=== PATIENT | male | born 1990 | race Caucasian/White ===

== ENCOUNTER 2017-06-18 12:16 | Day surgery (SDC) | payer MEDICAID ==
[2017-06-18] MEDS ORDERED: NS 1,000 ML IV ONE (13:00)
[2017-06-18] MEDS ORDERED: LIDOCAINE 1% 2 ML INJ ID PRN (13:02)
[2017-06-18] MEDS ORDERED: LR 1,000 ML IV ONE (13:02)
[2017-06-18] MEDS ORDERED: NALOXONE HCL 0.4 MG/ML INJ IVP PRN (13:55)
--- NOTE | 2017-06-18 13:55 | PDANEPAE ---
ANE History of Present Illness crohn's disease ANE Past Medical History - Cardiovascular History Hx Hypertension: No Hx Arrhythmias: No Hx Chest Pain: No Hx Coronary Artery / Peripheral Vascular Disease: No Hx CHF / Valvular Disease: No Hx Palpitations: No - Pulmonary History Hx COPD: No Hx Asthma/Reactive Airway Disease: No Hx Recent Upper Respiratory Infection: No Hx Oxygen in Use at Home: No Hx Sleep Apnea: No Sleep Apnea Screening Result - Last Documented: Negative Pulmonary History Comment: childhood asthma - Neurologic History Hx Cerebrovascular Accident: No Hx Seizures: No Hx Dementia: No Neurologic History Comment: occas headaches - Endocrine History Hx Diabetes: No - Renal History Hx Renal Disorders: No - Liver History Hx Hepatic Disorders: No - Neurological & Psychiatric Hx Hx Neurological and Psychiatric Disorders: No - Cancer History Hx Cancer: No - Congenital Disorder History Hx Congenital Disorders: No - GI History Hx Gastrointestinal Disorders: Yes Gastrointestinal History Comment: cramps,nausea & vomiting - Other Health History Other Health History: occas mild rash - Chronic Pain History Chronic Pain: Yes (abd pain) - Surgical History Prior Surgeries: colonoscopy ANE Review of Systems Review of Systems: - Exercise capacity METS (RN): 4 METS ANE Patient History - Allergies Allergies/Adverse Reactions: No Known Allergies Allergy (Unverified 06/07/17 14:17) - Home Medications Home Medications: Budesonide 06/07/17 [Last Taken 06/18/17] Tylenol 06/07/17 [Last Taken 06/18/17] Zofran 06/07/17 [Last Taken 06/18/17] Delzicol 06/18/17 [Last Taken 06/18/17] - NPO status NPO Since - Liquids (Date): 06/18/17 NPO Since - Liquids (Time): 04:00 NPO Since - Solids (Date): 06/16/17 NPO Since - Solids (Time): 18:00 - Smoking Hx Smoking Status: Light smoker - Family Anes Hx Family Hx Anesthesia Complications: neg ANE Labs/Vital Signs - Vital Signs Blood Pressure: 126/92 Heart Rate: 91 Respiratory Rate: 18 O2 Sat (%): 97 Height: 175.26 cm Weight: 49.895 kg ANE Physical Exam - Airway Neck exam: FROM Mallampati Score: Class 1 Mouth exam: normal dental/mouth exam - Pulmonary Pulmonary: no respiratory distress - Cardiovascular Cardiovascular: regular rate and rhythym - ASA Status ASA Status: II ANE Anesthesia Plan Total IV Anesthesia: Yes
--- NOTE | 2017-06-18 13:57 | PDGENHP ---
History & Physical Chief Complaint: nausea, vomiting, hx of Crohn's disease Relevant Physical Exam: GEN: NAD. Cardiac: RRR. Lungs: CTA B. Abd: Soft, nt, nd
--- NOTE | 2017-06-18 14:26 | GIREPORT ---
Former[facility] Surgical Services - Endoscopy Department Patient Name: Danilo Daniel Procedure Date: 06/18/2017 1:48 PM Patient Type: Outpatient Attending / ER Physician: Connor Petty MD Procedure: Upper GI endoscopy Indications: Nausea with vomiting Providers: Connor Petty MD Medicines: Monitored Anesthesia Care Complications: No immediate complications. Description of Procedure: After obtaining informed consent, the endoscope was passed under direct vision. Throughout the procedure, the patient's blood pressure, pulse, and oxygen saturations were monitored continuous ly. The Endoscope was introduced through the mouth, and advanced to the second part of duodenum. The upper GI endoscopy was accomplished without difficulty. The patient tolerated the procedure well . Findings: The examined esophagus was normal. The Z-line was regular and was found 40 cm from the incisors. Localized mild inflammation characterized by erythema was found in the gastric antrum. Biopsies were taken with a cold forceps for histology. Verification of patient identification for the specimen was done by the physician and nurse using the patient's name and date. Estimated blood loss wa s minimal. The examined duodenum was normal. Biopsies were taken with a cold forceps for histology. Verific ation of patient identification for the specimen was done by the physician and nurse using the patient 's name and date. Estimated blood loss was minimal. Estimated Blood Loss: Estimated blood loss: none. Post Op Diagnosis: - Normal esophagus. - Z-line regular, 40 cm from the incisors. - Gastritis. Biopsied. - Normal examined duodenum. Biopsied. Recommendation: - Discharge patient to home (with escort). - Resume previous diet. - Continue present medications. - Follow up in GI clinic as previously scheduled. - Await pathology results. Results are available within 10 days. - Thank you for allowing me to participate in the care of your patient. Attending Participation: I personally performed the entire procedure. Connor Petty MD Cononr Petty MD 06/18/2017 2:25:46 PM Number of Addenda: 0 Note Initiated On: 06/18/2017 1:48 PM [email or web address]
--- NOTE | 2017-06-18 14:31 | GIREPORT ---
[facility] Surgical Services - Endoscopy Department Patient Name: Danilo Daniel Procedure Date: 06/18/2017 2:06 PM Patient Type: Outpatient Attending / ER Physician: Connor Petty MD Procedure: Colonoscopy Indications: Chronic diarrhea, Suspected Crohn's disease of the colon Providers: Connor Petty MD Medicines: Monitored Anesthesia Care Complications: No immediate complications. Description of Procedure: After obtaining informed consent, the scope was passed under direct vision. Throughout the proce dure, the patient's blood pressure, pulse, and oxygen saturations were monitored continuously. The Colonoscope with irrigation channel was introduced through the anus and advanced to the terminal ileum, with identification of the appendiceal orifice and IC valve. The colonoscopy was performe d without difficulty. The patient tolerated the procedure well. The quality of the bowel preparati on was good. Findings: The perianal and digital rectal examinations were normal. The terminal ileum appeared normal. Biopsies were taken with a cold forceps for histology. Verification of patient identification for the specimen was done by the physician and nurse josue g the patient's name and date. Estimated blood loss was minimal. The colon (entire examined portion) appeared normal. Biopsies were taken with a cold forceps for histology. Verification of patient identification for the specimen was done by the physician and nurse using the patient's name and date. Estimated blood loss was minimal. The retroflexed view of the distal rectum and anal verge was normal and showed no anal or rectal abnormalities. Estimated Blood Loss: Estimated blood loss: none. Post Op Diagnosis: - The examined portion of the ileum was normal. Biopsied. - The entire examined colon is normal. Biopsied. - The distal rectum and anal verge are normal on retroflexion view. - No endoscopic findings suggestive of inflammatory bowel disease. Recommendation: - Discharge patient to home (with escort). - Resume previous diet. - Continue present medications for now. - Follow up in GI clinic as previously scheduled. - Await pathology results. Results are available within 10 days. - Thank you for allowing me to participate in the care of your patient. Attending Participation: I personally performed the entire procedure. Connor Petty MD Connor Petty MD 06/18/2017 2:31:29 PM Number of Addenda: 0 Note Initiated On: 06/18/2017 2:06 PM Total Procedure Duration Time 0 hours 13 minutes 30 seconds [email or web address]
--- NOTE | 2017-06-18 14:31 | POSTANESTH ---
Post Anesthetic Evaluation Cardiovascular Status: Normal, Stable Respiratory Status: Normal, Stable Level of Consciousness/Mental Status: Can Participate in Eval Pain Control: Adequate, Prn Tx Ordered Nausea/Vomiting Control: Adequate, Prn Tx Ordered Complications Possibly Related to Anesthesia: None Noted
[2017-06-18 15:27] VITALS: TEMP 97.7
[2017-06-18 15:38] VITALS: BP 115/78
[2017-06-18 15:40] VITALS: PULSE 68; RESP 14; O2SAT 100
== END 2017-06-18 16:07 | disposition home or self-care (01) ==
LOC: FSGY 12:16
PROVIDERS: ATTEND Internal Medicine Gastroenterology
PROC: 0DB98ZX Excision of Duodenum, Via Natural or Artificial Opening Endoscopic, Diagnostic (ICD-10-PCS; principal; 2017-06-18 14:00)
PROC: 0DB68ZX Excision of Stomach, Via Natural or Artificial Opening Endoscopic, Diagnostic (ICD-10-PCS; principal; 2017-06-18 14:00)
PROC: 0DBB8ZX Excision of Ileum, Via Natural or Artificial Opening Endoscopic, Diagnostic (ICD-10-PCS; principal; 2017-06-18 14:00)
PROC: 0DBE8ZX Excision of Large Intestine, Via Natural or Artificial Opening Endoscopic, Diagnostic (ICD-10-PCS; principal; 2017-06-18 14:00)
DX: R19.7 Diarrhea, unspecified (principal); R11.2 Nausea with vomiting, unspecified; K29.70 Gastritis, unspecified, without bleeding; K22.8 Other specified diseases of esophagus